=== PATIENT | female | born 2005 | race African-American/Black ===

== ENCOUNTER 2024-02-19 21:13 | Emergency (ER) | payer MEDICAID ==
[~2024-02-19] VITALS: Ht 162.6 cm; Wt 59.0 kg
[2024-02-19 21:28] VITALS: BP_SYST 119; PULSE 63; RESP 18; TEMP 98.1; O2SAT 100
[2024-02-19] MEDS ORDERED: NAPR-690 PO (22:01)
[2024-02-19 22:05] VITALS: BP_SYST 119; PULSE 63; RESP 18; TEMP 98.1; O2SAT 100
== END 2024-02-19 22:05 | disposition home or self-care (01) ==
LOC: SED 21:13
DX: S93.491A Sprain of other ligament of right ankle, initial encounter (principal); X50.1XXA Overexertion from prolonged static or awkward postures, initial encounter; Y93.89 Activity, other specified; Y92.89 Other specified places as the place of occurrence of the external cause; Y99.8 Other external cause status
CPT/HCPCS: 99283